=== PATIENT | male | born 2000 | race Caucasian/White ===

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

== ENCOUNTER → 2024-06-29 | Emergency (ER) | payer SELFPAY ==
[~2024-06-29] VITALS: Ht 165.1 cm; Wt 86.4 kg
[~2024-06-29] MED LIST: ACET-2080 PO; CEPH-558 PO; CORTSUSP AS; IBUP-1554 PO
[2024-06-29 06:39] VITALS: BP 112/63; PULSE 66; RESP 20; TEMP 97.6; O2SAT 97
[2024-06-29] MEDS: IBUPROFEN 600 MG TABLET PO ONE (07:31)
[2024-06-29] MEDS: ACETAMINOPHEN/CODEINE 300-30 MG TABLET PO ONE (07:31)
== END | disposition home or self-care (01) ==
LOC: EMS 06:36
DX: H66.92 Otitis media, unspecified, left ear (principal); H60.92 Unspecified otitis externa, left ear
CPT/HCPCS: 99283